=== PATIENT | male | born 1975 | race Native Hawaiian/Other Pacific Islander ===

== ENCOUNTER 2018-07-10 08:34 | Observation (INO) | payer OTHER ==
[~2018-07-10] VITALS: Ht 182.9 cm; Wt 129.0 kg
[2018-07-10 09:57] LABS: PLATELET COUNT 407 K/uL (142-355)
[2018-07-10 10:07] LABS: POTASSIUM 4.1 mmol/L (3.6-5.2)
[2018-07-10 16:45] VITALS: BP 106/55; TEMP 98.1
[2018-07-10 17:00] VITALS: BP 110/89; TEMP 98
[2018-07-10 17:15] VITALS: BP 108/63; TEMP 98
[2018-07-10 17:30] VITALS: BP 101/68; TEMP 98
[2018-07-10 18:00] VITALS: BP 98/65; TEMP 98.3
[2018-07-10 18:11] VITALS: BP 106/55; TEMP 98.1; Ht 182.9 cm; Wt 129.0 kg
[2018-07-10] MEDS ORDERED: PEPCID20 MG PO (18:29)
[2018-07-11] VITALS: BP 123/58; TEMP 98.8
[2018-07-11 04:17] VITALS: BP 148/78; TEMP 98.7
[2018-07-11 05:21] LABS: PLATELET COUNT 411 K/uL (142-355)
[2018-07-11 05:39] LABS: POTASSIUM 4.6 mmol/L (3.6-5.2)
[2018-07-11 08:00] VITALS: BP 125/79; TEMP 98.6
[2018-07-11 12:04] VITALS: BP 127/77; TEMP 99.6
[2018-07-11 16:04] VITALS: BP 124/70; TEMP 98.8
[2018-07-11 20:02] VITALS: BP 116/71; TEMP 99.5
[2018-07-12] VITALS: BP 103/70; TEMP 98.7
[2018-07-12 04:00] VITALS: BP 123/70; TEMP 98.1
[2018-07-12 08:05] VITALS: BP 115/65; TEMP 99.5
== END 2018-07-12 10:25 | disposition home or self-care (01) ==
LOC: OR 08:34 → MED/SURG 15:30
PROVIDERS: ADMIT Student in an Organized Health Care Education/Training Program
PROC: 0WUF0JZ Supplement Abdominal Wall with Synthetic Substitute, Open Approach (ICD-10-PCS; principal; 2018-07-10)
DX: K43.0 Incisional hernia with obstruction, without gangrene (principal); J98.11 Atelectasis; Z79.01 Long term (current) use of anticoagulants
CPT/HCPCS: 36415; 80048; 80053; 82948; 85027; 96366; 96372; 96374; 99220; C1729; C1781; G0378; J0132; J0330; J0690; J1100; J1170; J1644; J2001; J2250; J2270; J2405; J2704; J2710; J2765; J3010; J3490

== ENCOUNTER 2018-07-18 15:44 | Outpatient (CLI) | payer OTHER ==
[~2018-07-18 15:44] MED LIST: PEPCID20 MG PO
== END 2018-07-18 21:17 | disposition home or self-care (01) ==
LOC: US 15:44
DX: R30.0 Dysuria (principal)